=== PATIENT | female | born 1955 | race Caucasian/White ===

== ENCOUNTER 2017-02-02 19:39 | Inpatient (IN) | payer OTHER ==
[~2017-02-02] VITALS: Ht 157.5 cm; Wt 97.1 kg
[2017-02-02 20:52] VITALS: BP 117/66
--- NOTE | 2017-02-02 22:41 | NUR ---
Patient to bed 08.
--- NOTE | 2017-02-02 22:52 | NUR ---
61 Y/O bib by daughter, W/C/O SWELLING TO L 4TH TOE AND FOOT. PT STATES FELT SOMETHING BITTED HER 01/26/17 BUT SWELLING DIDNT STARTED UNTIL 3 DAYS AGO. SMALL AMOUNT OF PUS NOTED, PT DENIES ANY FEVER OR CHILLS. L FOOT APPAERAS SWOLLEN AND RED. ER MD AWARED. Blood Sugar upon admit was: 282
--- NOTE | 2017-02-02 22:54 | NUR ---
Dr. Bañuelos evaluating patient at bedside.
[2017-02-02] MEDS ORDERED: NACL 0.9% 1,000 ML IV ONE (23:01)
[2017-02-02] MEDS ORDERED: PIPERACILLIN/TAZOBACTAM 3.375 GM in DEXTROSE 5% 50 ML IV ONE (23:05)
[2017-02-02] MEDS ORDERED: LIDOCAINE 1% 500 MG/50 ML VIAL INJ ONE (23:05)
--- NOTE | 2017-02-02 23:18 | NUR ---
XRAY at bedside.
[2017-02-02] MEDS ORDERED: PIPERACILLIN/TAZOBACTAM 3.375 GM VIAL IV ONE (23:20)
[2017-02-02 23:34] LABS: ANION GAP 10.8 (8-16); CALCIUM 8.5 mg/dL (8.5-10.1); CARBON DIOXIDE 28.4 mmol/L (21-32); CREATININE 0.8 mg/dL (0.6-1.3); POTASSIUM 4.2 mmol/L (3.5-5.1)
[2017-02-02 23:41] LABS: ALBUMIN 3.3 g/dL (3.4-5.0); TOTAL BILIRUBIN 0.9 mg/dL (0.0-1.0); TOTAL PROTEIN, SERUM 7.7 g/dL (6.4-8.2)
[2017-02-02 23:42] LABS: LACTIC ACID 0.8 mmol/L (0.4-2.0)
[2017-02-02 23:46] LABS: BASOPHILS # (AUTO) 0.1 K/uL (0.00-0.22); BASOPHILS % (AUTO) 1.1 % (0.0-2.0); EOSINOPHILS # (AUTO) 0.1 K/uL (0-0.4); EOSINOPHILS % (AUTO) 1.2 % (0.0-4.0); HEMATOCRIT 35.7 % (36-48); HEMOGLOBIN 11.9 g/dL (12.0-16.0); LYMPHOCYTES # (AUTO) 1.5 K/uL (2.5-16.5); LYMPHOCYTES % (AUTO) 13.2 % (20.5-51.1); MEAN CORPUSCULAR HEMOGLOBIN 28 pg (27-31); MEAN CORPUSCULAR HGB CONC 33 g/dL (33-37); MEAN CORPUSCULAR VOLUME 85 fL (80-94); MONOCYTES # (AUTO) 0.7 K/uL (0.8-1.0); MONOCYTES % (AUTO) 6.6 % (1.7-9.3); NEUTROPHILS # (AUTO) 8.9 K/uL (1.8-7.7); NEUTROPHILS % (AUTO) 77.9 % (42.2-75.2); PLATELET COUNT (AUTO) 336 K/uL (140-450); RED BLOOD CELL COUNT(AUTO) 4.23 MIL/uL (4.20-5.40); RED CELL DISTRIBUTION WIDTH 12.8 % (11.6-13.7); WHITE BLOOD COUNT (AUTO) 11.3 K/uL (4.8-10.8)
[2017-02-02 23:49] LABS: INR 1.1 (0.8-1.2); PROTHROMBIN TIME 10.8 secs (10.8-13.4)
--- NOTE | 2017-02-03 00:46 | NUR ---
PT RESTING IN BED AWATTING FOR WOUND TX. ER MD NOTIFIED OF V/S CHANGED. NO S/S OF DISTRESS NOTED AT THIS MOMENT.
[2017-02-03] MEDS ORDERED: MORPHINE SULFATE 4 MG/ML SYR IVP ONE (01:00)
[2017-02-03] MEDS ORDERED: ONDANSETRON 4 MG/2 ML VIAL IVP ONE (01:00)
[2017-02-03] MEDS ORDERED: ONDANSETRON 4 MG/2 ML VIAL IVP PRN (01:10)
[2017-02-03] MEDS ORDERED: HYDROcodone/APAP 5/325 MG 1 TAB TAB PO PRN (01:10)
[2017-02-03] MEDS ORDERED: ACETAMINOPHEN 325 MG TAB PO PRN (01:10)
[2017-02-03 01:13] LABS: BILIRUBIN,URINE NEGATIVE (NEGATIVE); BLOOD, URINE TRACE-L (NEGATIVE); COLOR,URINE YELLOW (YELLOW); LEUKOCYTE ESTERASE ,URINE TRACE (NEGATIVE); NITRITE, URINE NEGATIVE (NEGATIVE); PH,URINE 5.5 (5.0-9.0); PROTEIN,URINE NEGATIVE (NEGATIVE); UGLUCOSE 3+ (NEGATIVE); UROBILINOGEN,URINE 0.2 EU/dL (0.2 - 1)
[2017-02-03] MEDS ORDERED: DEXTROSE 50% 50 ML SYR IVP PRN (01:15)
[2017-02-03 01:17] LABS: APPEARANCE,URINE SLIGHTLY HAZY (CLEAR)
--- NOTE | 2017-02-03 01:18 | NUR ---
XRAY AT BEDSIDE.
[2017-02-03 01:23] LABS: BACTERIA,URINE 1+ /HPF (None Seen); RBC,URINE 0-5 (RARE) /HPF (0-5); WBC,URINE 20-60 /HPF (0-5)
[2017-02-03] MEDS ORDERED: METF500T2 PO (01:23)
[2017-02-03 01:24] LABS: SQUAMOUS EPITHELIAL CELL,UR 4-10 (MOD) /LPF (0-3 (FEW))
--- NOTE | 2017-02-03 01:41 | NUR ---
Patient will be admitted to care of [facility]. Admited to TELEMETRY. Will go to [id number]. Belongings list completed. Report to CHAD SALMON.
[2017-02-03] MEDS: NACL 0.9% 1,000 ML IV SCH ×3 (01:53→18:16)
--- NOTE | 2017-02-03 02:00 | NUR ---
PT TRANSFERRED TO TELEMETRY. PT STABLE, VSS, NO S/S OF DISTRESS DURING TRASPORT. ACCOMPANIED BY JEFFRY RN, AND STEFF, EMT.
--- NOTE | 2017-02-03 02:05 | NUR ---
[facility]. A 61 y/o. Female, Appropriate. ALERT AWAKE ORIENTED X4. NAURUAN-SPEAKING BUT CAN UNDERSTAND LATVIAN WELL AND SPEAK WELL. INITIAL ASSESSMENT DONE. NO S/S OF RESPIRATORY DISTRESS OR SOB NOTED. NO C/O PAIN OR ANY DISCOMFORT AT THIS TIME. DRESSING IS INTACT ON LEFT FOOT D/T S/P I&D ON THE LEFT BIG TOE D/T CELLULITIS. PLAN OF CARE REVIEWED TO PT AND VERBALIZED UNDERSTANDING. oriented to call light, bed, phone,television, bathroom, smoking policy, visiting hours, procedures, ID bracelet on. Belongings list checked. CALL LIGHT WITHIN REACH. WILL CONTINUE TO MONITOR.
[2017-02-03 02:55] LABS: FREE T4 (FREE THYROXINE) 1.16 ng/dL (0.76-1.46); THYROID STIMULATING HORMONE 1.24 uIU/mL (0.34-3.76)
[2017-02-03 03:26] LABS: AMPHETAMINE, URINE NEG. ng/ml (NEG <=1000); BARBITURATE, URINE NEG. ng/ml (NEG <=200); BENZODIAZEPINE, URINE NEG. ng/mL (NEG <=200); CANNABINOID, URINE NEG. ng/mL (NEG <=50); COCAINE, URINE NEG. ng/mL (NEG <=300); OPIATE, URINE NEG. ng/mL (NEG <=2000); PHENCYCLIDINE SCREEN,URINE NEG. ng/mL (NEG <=25)
[2017-02-03] MEDS ORDERED: CLINDAMYCIN 600 MG/4 ML VIAL ONE ×2 (03:51→12:20)
[2017-02-03 04:00] VITALS: BP 155/79
[2017-02-03] MEDS: CLINDAMYCIN 600 MG in DEXTROSE 5% 50 ML IV SCH ×3 (04:03→20:55)
--- NOTE | 2017-02-03 04:50 | NUR ---
PT IS ASLEEP RIGHT NOW BUT EASILY AROUSABLE. NO S/S OF ANY DISCOMFORT AT THIS TIME. ALL NEEDS ARE ATTENDED. CALL LIGHT WITHIN REACH. WILL CONTINUE TO MONITOR.
--- NOTE | 2017-02-03 05:45 | NUR ---
AM CARE RENDERED. BED LINEN CHANGED. INSTRUCTED PT TO REPOSITION. KEPT CLEAN AND DRY. CALL LIGHT WITHIN REACH. WILL CONTINUE TO MONITOR.
[2017-02-03 06:31] LABS: BASOPHILS % (AUTO) 0.5 % (0.0-2.0); EOSINOPHILS # (AUTO) 0.1 K/uL (0-0.4); HEMATOCRIT 33.2 % (36-48); HEMOGLOBIN 10.9 g/dL (12.0-16.0); LYMPHOCYTES # (AUTO) 1.8 K/uL (2.5-16.5); LYMPHOCYTES % (AUTO) 20.9 % (20.5-51.1); MEAN CORPUSCULAR HEMOGLOBIN 28 pg (27-31); MEAN CORPUSCULAR HGB CONC 33 g/dL (33-37); MEAN CORPUSCULAR VOLUME 84 fL (80-94); MONOCYTES # (AUTO) 0.7 K/uL (0.8-1.0); MONOCYTES % (AUTO) 7.7 % (1.7-9.3); NEUTROPHILS % (AUTO) 69.9 % (42.2-75.2); PLATELET COUNT (AUTO) 324 K/uL (140-450); RED BLOOD CELL COUNT(AUTO) 3.93 MIL/uL (4.20-5.40); RED CELL DISTRIBUTION WIDTH 12.9 % (11.6-13.7); WHITE BLOOD COUNT (AUTO) 8.6 K/uL (4.8-10.8)
[2017-02-03] MEDS: BLOOD GLUCOSE MONITORING 1 DEV DEV FS SCH ×4 (06:31→20:54)
[2017-02-03] MEDS: INSULIN LISPRO SLIDING SCALE 100 UNITS/ML VIAL SUBQ PRN ×4 (06:32→21:00)
--- NOTE | 2017-02-03 07:10 | NUR ---
ENDORSED PT TO RN. PANCHO FOR CONTINUITY OF CARE. PT STABLE AT THIS TIME. Addendum: 02/03/17 at 1927 by Mariama Velarde RN WRONG TIME
--- NOTE | 2017-02-03 07:17 | NUR ---
PT HAS NO S/S OF ANY DISCOMFORT. PLAN OF CARE ENDORSED TO ANN STEWART RN AT BEDSIDE FOR CONTINUITY OF CARE.
--- NOTE | 2017-02-03 07:21 | NUR ---
PATIENT HAS BEEN SCREENED AND CATEGORIZED MODERATE NUTRITION RISK. PATIENT WILL BE SEEN WITHIN 3-5 DAYS OF ADMISSION. 02/05/17-02/07/17 VENU SOLOMON MS, RDN
[2017-02-03 07:23] LABS: ANION GAP 10.6 (8-16); CALCIUM 7.8 mg/dL (8.5-10.1); CARBON DIOXIDE 25.7 mmol/L (21-32); CREATININE 0.8 mg/dL (0.6-1.3); POTASSIUM 3.3 mmol/L (3.5-5.1)
--- NOTE | 2017-02-03 07:24 | NUR ---
RECEIVED REPORT FROM CHAD SALMON. PT IS A/OX4, IV ON LT AC PATENT AND INTACT, INFUSING WELL. DRESSING ON LEFT TOE IS DRY AND INTACT. NO S/S OF RESPIRATORY DISTRESS OR DISCOMFORT NOTED. DISCUSSED PLAN OF CARE WITH PT, PT VERBALIZED UNDERSTANDING. CALL LIGHT WITHIN REACH, WILL CONTINUE TO MONITOR.
[2017-02-03 07:28] LABS: PHOSPHORUS 2.2 mg/dL (2.5-4.9)
[2017-02-03 07:29] LABS: CHOL/HDL RATIO 2.8 (1-4.5)
[2017-02-03 07:38] LABS: MAGNESIUM 1.8 mg/dL (1.8-2.4)
[2017-02-03 08:00] VITALS: BP 127/68
[2017-02-03] MEDS: DOCUSATE SODIUM 100 MG GELCAP PO SCH (08:42)
--- NOTE | 2017-02-03 08:42 | NUR ---
DUE MEDICATIONS GIVEN. PT TOLERATED WELL. NO S/S OF RESPIRATORY DISTRESS OR DISCOMFORT NOTED. CALL LIGHT WITHIN REACH, WILL CONTINUE TO MONITOR.
[2017-02-03] MEDS: SODIUM PHOS / POTASSIUM PHOS 1 PKT PDR PO SCH ×3 (08:43→16:45)
[2017-02-03] MEDS ORDERED: POTASSIUM CHLORIDE 10 MEQ TABER PO SCH (09:00)
--- NOTE | 2017-02-03 11:20 | NUR ---
PT RESTING IN BED, FAMILY IS AT BEDSIDE.
[2017-02-03 12:00] VITALS: BP 145/82
--- NOTE | 2017-02-03 13:26 | NUR ---
PT IS RESTING IN BED, WATCHING TV. NO S/S OF RESPIRATORY DISTRESS OR DISCOMFORT NOTED, CALL LIGHT WITHIN REACH WILL CONTINUE TO MONITOR.
--- NOTE | 2017-02-03 15:45 | NUR ---
PT IS RESTING ON BED TALKING TO FAMILY MEMBER AT BEDSIDE, ALL NEEDS MET AT THIS TIME, CALL LIGHT WITHIN REACH, WILL CONTINUE TO MONITOR.
[2017-02-03 16:00] VITALS: BP 121/75
[2017-02-03] MEDS: LEVOFLOXACIN 250 MG/D5 PREMIX 50 ML IV SCH (16:30)
[2017-02-03] MEDS: metFORMIN 500 MG TAB PO SCH (16:44)
--- NOTE | 2017-02-03 17:45 | NUR ---
DINNER SERVED, PT HAS GOOD APPETITE, NO S/S OF RESPIRATORY DISTRESS OR DISCOMFORT NOTED, ALL NEEDS MET AT THIS TIME, CALL LIGHT WITHIN REACH, WILL CONTINUE TO MONITOR.
--- NOTE | 2017-02-03 19:10 | NUR ---
ENDORSED PT TO CHAD DELEON. FOR CONTINUITY OF CARE. PT STABLE AT THIS TIME.
--- NOTE | 2017-02-03 19:45 | NUR ---
RECEIVED PT IN STABLE CONDITION FROM AM NURSE. AWAKE,ALERT AND ORIENTED X4. FAROESE SPEAKING. ON TELE -SR. NO C/O ANY PAIN AT THIS TIME. RT FOOT WITH DRESSING . NO DRAIN NOTED.FAMILY AT BEDSIDE. IVF INFS=USING WELL ON THE LT AC # 20. CLEAR AND PATENT. PLAN OF CARE DISCUSSED AND VERBALIZED UNDERSTANDING. CALL LIGHT PLACED WITHIN EASY REACH. WILL CONTINUE TO MONITOR.
[2017-02-03 20:00] VITALS: BP 109/59
[2017-02-03] MEDS ORDERED: INSULIN DETEMIR 100 UNITS/ML 10 ML VIAL SUBQ SCH (21:00)
--- NOTE | 2017-02-03 21:00 | NUR ---
BLOOD SUGAR WAS CHECKED RESULT 344. INSULIN COVERAGE GIVEN. HS SNACK PROVIDED. WILL CONTINUE TO MONITOR.
--- NOTE | 2017-02-03 23:00 | NUR ---
SLEEPING WELL AT THIS TIME. NO S/S OF ANY DISCOMFORT NOR PAIN NOTED. WILL CONTINUE TO MONITOR
[2017-02-04] VITALS: BP 127/75
--- NOTE | 2017-02-04 02:00 | NUR ---
SLEEPING . NO S/S OF ANT PAIN NOTED. WILL CONTINUE TO MONITOR.
[2017-02-04] MEDS: NACL 0.9% 1,000 ML IV SCH ×4 (03:56→21:32)
[2017-02-04 04:00] VITALS: BP 141/85
--- NOTE | 2017-02-04 04:05 | NUR ---
GOT UP TO THE BATHROOM. ENCOURAGED TO USE LT FOOT SHOE .
[2017-02-04] MEDS: CLINDAMYCIN 600 MG in DEXTROSE 5% 50 ML IV SCH ×3 (04:46→20:18)
[2017-02-04] MEDS: BLOOD GLUCOSE MONITORING 1 DEV DEV FS SCH ×4 (06:17→21:16)
[2017-02-04] MEDS: INSULIN LISPRO SLIDING SCALE 100 UNITS/ML VIAL SUBQ PRN ×4 (06:18→21:30)
--- NOTE | 2017-02-04 06:18 | NUR ---
BLOOD SUGAR WAS CHECKED THIS AM RESULT 364. INSULIN COVERAGE GIVEN.
[2017-02-04 06:52] LABS: BASOPHILS # (AUTO) 0.2 K/uL (0.00-0.22); EOSINOPHILS # (AUTO) 0.1 K/uL (0-0.4); EOSINOPHILS % (AUTO) 1.5 % (0.0-4.0); HEMATOCRIT 33.2 % (36-48); HEMOGLOBIN 10.9 g/dL (12.0-16.0); LYMPHOCYTES # (AUTO) 2.4 K/uL (2.5-16.5); LYMPHOCYTES % (AUTO) 27.6 % (20.5-51.1); MEAN CORPUSCULAR HEMOGLOBIN 28 pg (27-31); MEAN CORPUSCULAR HGB CONC 33 g/dL (33-37); MEAN CORPUSCULAR VOLUME 86 fL (80-94); MONOCYTES # (AUTO) 0.7 K/uL (0.8-1.0); NEUTROPHILS # (AUTO) 5.2 K/uL (1.8-7.7); NEUTROPHILS % (AUTO) 60.9 % (42.2-75.2); PLATELET COUNT (AUTO) 316 K/uL (140-450); RED BLOOD CELL COUNT(AUTO) 3.87 MIL/uL (4.20-5.40); RED CELL DISTRIBUTION WIDTH 12.6 % (11.6-13.7); WHITE BLOOD COUNT (AUTO) 8.6 K/uL (4.8-10.8)
[2017-02-04 07:01] LABS: ANION GAP 7.7 (8-16); CALCIUM 7.9 mg/dL (8.5-10.1); CARBON DIOXIDE 28.9 mmol/L (21-32); CREATININE 0.8 mg/dL (0.6-1.3); POTASSIUM 4.6 mmol/L (3.5-5.1)
[2017-02-04 07:10] LABS: MAGNESIUM 1.9 mg/dL (1.8-2.4)
--- NOTE | 2017-02-04 07:16 | NUR ---
ASSUMED CONTINUITY OF CARE. NO SIGNS AND SYMPTOMS OF ACUTE DISTRESS NOTED. INITIAL ASSESSMENT DONE. EXPLAINED DIAGNOSIS, PLAN OF CARE, POST-OP CARE, PAIN MANAGEMENT TEACHING, USE OF CALL LIGHT/BED/TV/BATHROOM. VERBALIZED UNDERSTANDING. CALL LIGHT WITHIN REACH.
--- NOTE | 2017-02-04 07:20 | NUR ---
ENDORSED PT IN STABLE CONDITION TO AM NURSE.
[2017-02-04 08:00] VITALS: BP 139/76
--- NOTE | 2017-02-04 08:00 | NUR ---
Patient's Plan of Care was discussed and reviewed with HELMET HAT SWEATBAND PUNCHER: KALEB BUSTILLOS LVN
[2017-02-04] MEDS: DOCUSATE SODIUM 100 MG GELCAP PO SCH (08:33)
[2017-02-04] MEDS: metFORMIN 500 MG TAB PO SCH ×2 (08:33→16:38)
[2017-02-04] MEDS ORDERED: INSULIN DETEMIR 100 UNITS/ML 10 ML VIAL SUBQ SCH ×2 (09:35→21:00)
[2017-02-04 12:00] VITALS: BP 135/72
--- NOTE | 2017-02-04 13:16 | NUR ---
WOUND CARE DONE ON LEFT 5TH TOE. TOLERATED WELL. NO C/O PAIN. KEEP COMFORTABLE ON BED.
[2017-02-04 16:00] VITALS: BP 121/74
[2017-02-04] MEDS: LEVOFLOXACIN 250 MG/D5 PREMIX 50 ML IV SCH (17:01)
--- NOTE | 2017-02-04 19:12 | NUR ---
REPORT GIVEN TO PANCHO WORKMAN -CHAD. IVF INFUSING WELL. IN STABLE CONDITION.
--- NOTE | 2017-02-04 19:30 | NUR ---
RECEIVED PT IN STABLE CONDITION FROM AM NURSE. AWAKE,ALERT AND ORIENTED X4. YAKUT SPEAKING. ON TELE MONITOR. WITH NO C/O ANY PAIN NOTED. WITH LT FOOT DRESSING , HAS SHOE ON . IVF INFUSING WELL ON THE LT FA#22. PLAN OF CARE DISCUSSED AND VERBALIZED UNDERSTANDING . CALL LIGHT PLACED WITHIN EASY REACH . BED ON LOW POSITION. WILL CONTINUE TO MONITOR.
[2017-02-04 19:45] VITALS: BP 134/77
[2017-02-04] MEDS: SIMVASTATIN 10 MG TAB PO SCH (20:18)
--- NOTE | 2017-02-04 21:30 | NUR ---
BLOOD SUGAR WAS CHECKED RESULT 329, INSULIN COVERAGE GIVEN . HS SNACK PROVIDED.
[2017-02-04] MEDS: INSULIN NPH HUM/REG INSULIN HM 100 UNIT/ML 10 ML VIAL SQ SCH (21:40)
--- NOTE | 2017-02-04 23:00 | NUR ---
ASLEEP. NO S/S OF AMI DISCOMFORT NOTED.
[2017-02-05 00:15] VITALS: BP 144/82
--- NOTE | 2017-02-05 03:00 | NUR ---
ASLEEP. NO S/S OF ANY DISCOMFORT NOR PAIN NOTED.
[2017-02-05 03:45] VITALS: BP 140/81
[2017-02-05] MEDS: CLINDAMYCIN 600 MG in DEXTROSE 5% 50 ML IV SCH ×3 (05:03→21:35)
[2017-02-05] MEDS: BLOOD GLUCOSE MONITORING 1 DEV DEV FS SCH ×4 (06:10→21:36)
[2017-02-05 06:23] LABS: BASOPHILS % (AUTO) 0.5 % (0.0-2.0); EOSINOPHILS # (AUTO) 0.1 K/uL (0-0.4); EOSINOPHILS % (AUTO) 1.9 % (0.0-4.0); HEMOGLOBIN 11.3 g/dL (12.0-16.0); LYMPHOCYTES # (AUTO) 2.4 K/uL (2.5-16.5); LYMPHOCYTES % (AUTO) 33.5 % (20.5-51.1); MEAN CORPUSCULAR HEMOGLOBIN 28 pg (27-31); MEAN CORPUSCULAR HGB CONC 33 g/dL (33-37); MEAN CORPUSCULAR VOLUME 85 fL (80-94); MONOCYTES # (AUTO) 0.5 K/uL (0.8-1.0); NEUTROPHILS # (AUTO) 4.3 K/uL (1.8-7.7); NEUTROPHILS % (AUTO) 57.1 % (42.2-75.2); PLATELET COUNT (AUTO) 342 K/uL (140-450); RED BLOOD CELL COUNT(AUTO) 4.01 MIL/uL (4.20-5.40); WHITE BLOOD COUNT (AUTO) 7.3 K/uL (4.8-10.8)
[2017-02-05] MEDS: INSULIN LISPRO SLIDING SCALE 100 UNITS/ML VIAL SUBQ PRN ×4 (06:28→21:40)
--- NOTE | 2017-02-05 06:28 | NUR ---
BLOOD SUGAR THIS AM 249. INSULIN COVERAGE GIVEN.
[2017-02-05 06:38] LABS: ANION GAP 10.6 (8-16); CALCIUM 8.4 mg/dL (8.5-10.1); CARBON DIOXIDE 28.3 mmol/L (21-32); CREATININE 0.7 mg/dL (0.6-1.3); POTASSIUM 3.9 mmol/L (3.5-5.1)
[2017-02-05 06:46] LABS: MAGNESIUM 1.8 mg/dL (1.8-2.4); PHOSPHORUS 4.1 mg/dL (2.5-4.9)
[2017-02-05] MEDS: NACL 0.9% 1,000 ML IV SCH (07:18)
--- NOTE | 2017-02-05 07:20 | NUR ---
ENDORSED PT IN STABLE CONDITION TO AM NURSE.
--- NOTE | 2017-02-05 07:22 | NUR ---
RECEIVED REPORT FROM NIGHT RN. PT RESTING IN BED. AAOX4. NO S/S OF ACUTE DISTRESS. PT DENIES PAIN. IV SITE PATENT AND INTACT. DRESSING TO LEFT FOOT DRY AND INTACT. CALL LIGHT WITHIN REACH. SAFETY MEASURES ENSURED. WILL CONTINUE TO MONITOR.
[2017-02-05 07:52] VITALS: BP 144/64
[2017-02-05] MEDS: DOCUSATE SODIUM 100 MG GELCAP PO SCH (08:43)
[2017-02-05] MEDS: metFORMIN 500 MG TAB PO SCH ×2 (08:44→16:49)
[2017-02-05] MEDS: LEVOFLOXACIN 750 MG/D5W PREMIX 150 ML IV SCH (08:44)
[2017-02-05] MEDS: ECOTRIN 81 MG TABEC PO SCH (08:44)
[2017-02-05] MEDS: INSULIN NPH HUM/REG INSULIN HM 100 UNIT/ML 10 ML VIAL SQ SCH ×2 (08:46→21:41)
--- NOTE | 2017-02-05 10:07 | NUR ---
PT RESTING IN BED. NO S/S OF ACUTE DISTRESS. PT DENIES PAIN. CALL LIGHT WITHIN REACH. SAFETY MEASURES ENSURED. WILL CONTINUE TO MONITOR.
--- NOTE | 2017-02-05 10:30 | NUR ---
WOUND CARE NOTES: WOUND CARE INSTRUCTIONS GIVEN, PATIENT IS ABLE TO VERBALIZE UNDERSTANDING. Addendum: 02/05/17 at 1637 by Joi Rosa RN WRONG ENTRY.
[2017-02-05 12:00] VITALS: BP 141/84
--- NOTE | 2017-02-05 12:40 | NUR ---
PT RESTING IN BED. NO S/S OF ACUTE DISTRESS.PT DENIES PAIN. CALL LIGHT WITHIN REACH. SAFETY MEASURES ENSURED. WILL CONTINUE TO MONITOR.
--- NOTE | 2017-02-05 15:32 | NUR ---
PT RESTING IN BED. NO S/S OF ACUTE DISTRESS. PT DENIES PAIN. CALL LIGHT WITHIN REACH. WILL CONTINUE TO MONITOR.
[2017-02-05 16:00] VITALS: BP 150/83
--- NOTE | 2017-02-05 19:18 | NUR ---
ENDORSED PLAN OF CARE TO NIGHT RN. PT REMAINS IN STABLE CONDITION.
[2017-02-05 20:05] VITALS: BP 134/71
--- NOTE | 2017-02-05 20:05 | NUR ---
SEEN PT AWAKE, ALERT AND ORIENTED APPEARS COMFORTABLE IN BED. FAMILY AT BEDSIDE. INITIAL ASSESSMENT DONE. PT HAS DRESSING ON LEFT FOOT WRAPPED W/ JOSE WRAP W/ POSTOP BOOT ON. PT DENIES ANY DISCOMFORT ON LEFT FOOT. IVF INFUSING WELL. PT DENIES ANY NEEDS AT THIS TIME. SAFETY REINFORCED.
--- NOTE | 2017-02-05 21:35 | NUR ---
BLOOD SUGAR CHECKED:203. WILL COVER WITH INSULIN PER COVERAGE. DUE MEDS GIVEN ORDERED W/ TEACHINGS. PT PROVIDED A/ SNACKS. PT DENIES ANY NEEDS RIGHT NOW. WILL CONTINUE TO MONITOR. CALL LIGHT W/IN REACH.
[2017-02-05] MEDS: SIMVASTATIN 10 MG TAB PO SCH (21:36)
--- NOTE | 2017-02-05 23:50 | NUR ---
SEEN PT AWAKE, APPEARS COMFORTABLE. VITAL SIGNS CHECKED. PT DENIES ANY PAIN OR DISCOMFORT. CALL LIGHT W/IN REACH.
[2017-02-06] VITALS: BP 147/80
[2017-02-06 04:00] VITALS: BP 125/74
[2017-02-06] MEDS: CLINDAMYCIN 600 MG in DEXTROSE 5% 50 ML IV SCH ×2 (04:50→12:14)
[2017-02-06] MEDS: NACL 0.9% 1,000 ML IV SCH ×2 (04:50→08:18)
--- NOTE | 2017-02-06 04:50 | NUR ---
SEEN PT SLEEPING SOUNDLY. VITAL SIGNS CHECKED. PT DENIES ANY DISCOMFORT. DRESSING ON LEFT FOOT DRY AND INTACT ELEVATED OVER PILLOW. CALL LIGHT W/IN REACH.
[2017-02-06 06:15] LABS: BASOPHILS # (AUTO) 0.1 K/uL (0.00-0.22); EOSINOPHILS # (AUTO) 0.2 K/uL (0-0.4); EOSINOPHILS % (AUTO) 2.1 % (0.0-4.0); HEMATOCRIT 33.1 % (36-48); LYMPHOCYTES % (AUTO) 35.6 % (20.5-51.1); MEAN CORPUSCULAR HEMOGLOBIN 28 pg (27-31); MEAN CORPUSCULAR HGB CONC 33 g/dL (33-37); MEAN CORPUSCULAR VOLUME 85 fL (80-94); MONOCYTES # (AUTO) 0.7 K/uL (0.8-1.0); NEUTROPHILS # (AUTO) 4.4 K/uL (1.8-7.7); NEUTROPHILS % (AUTO) 53.3 % (42.2-75.2); PLATELET COUNT (AUTO) 383 K/uL (140-450); RED BLOOD CELL COUNT(AUTO) 3.91 MIL/uL (4.20-5.40); RED CELL DISTRIBUTION WIDTH 12.8 % (11.6-13.7); WHITE BLOOD COUNT (AUTO) 8.4 K/uL (4.8-10.8)
[2017-02-06 06:21] LABS: ANION GAP 10.6 (8-16); CALCIUM 8.6 mg/dL (8.5-10.1); CARBON DIOXIDE 28.1 mmol/L (21-32); CREATININE 0.8 mg/dL (0.6-1.3); POTASSIUM 3.7 mmol/L (3.5-5.1)
[2017-02-06] MEDS: BLOOD GLUCOSE MONITORING 1 DEV DEV FS SCH ×2 (06:27→11:51)
[2017-02-06 06:28] LABS: MAGNESIUM 1.6 mg/dL (1.8-2.4); PHOSPHORUS 5.8 mg/dL (2.5-4.9)
--- NOTE | 2017-02-06 06:28 | NUR ---
BLOOD SUGAR CHECKED:87. WILL GIVE ORANGE JUICE. PT DENIES ANY OTHER NEEDS.
--- NOTE | 2017-02-06 07:00 | NUR ---
REPORT GIVEN TO DAYSHIFT NURSE.
--- NOTE | 2017-02-06 07:14 | NUR ---
ASSUMED CONTINUITY OF CARE. NO SIGNS AND SYMPTOMS OF ACUTE DISTRESS NOTED. INITIAL ASSESSMENT DONE. EXPLAINED DIAGNOSIS, PLAN OF CARE, INCISION CARE, PAIN MANAGEMENT TEACHING, USE OF CALL LIGHT/BED/TV/BATHROOM. VERBALIZED UNDERSTANDING. CALL LIGHT WITHIN REACH.
[2017-02-06 08:00] VITALS: BP 139/73
--- NOTE | 2017-02-06 08:00 | NUR ---
Patient's Plan of Care was discussed and reviewed with ENGINEERING JOB TITLES: KALEB Evans
--- NOTE | 2017-02-06 08:07 | NUR ---
SPOKE WITH LA FROM [facility] ON 02/05/17 SHE SAID TO FAX REVIEW TO [facility] AT [phone] PHONE [phone] FAXED INITIAL REVIEW. Addendum: 02/06/17 at 0810 by Jammie Schmitt CM FAX [facility] [phone]
[2017-02-06] MEDS: metFORMIN 500 MG TAB PO SCH (08:33)
[2017-02-06] MEDS: LEVOFLOXACIN 750 MG/D5W PREMIX 150 ML IV SCH (09:12)
[2017-02-06] MEDS: DOCUSATE SODIUM 100 MG GELCAP PO SCH (09:27)
[2017-02-06] MEDS: ECOTRIN 81 MG TABEC PO SCH (09:27)
[2017-02-06] MEDS: INSULIN NPH HUM/REG INSULIN HM 100 UNIT/ML 10 ML VIAL SQ SCH (09:29)
--- NOTE | 2017-02-06 10:46 | NUR ---
INFORMED DR. MANZANO OF PT. MAG 1.6. WILL CHECK ORDER LATER.
--- NOTE | 2017-02-06 11:27 | NUR ---
WENT TO BATHROOM WITHOUT ASSISTANCE. TOLERATED WELL. NO C/O PAIN.
[2017-02-06] MEDS: INSULIN LISPRO SLIDING SCALE 100 UNITS/ML VIAL SUBQ PRN (11:51)
[2017-02-06 12:00] VITALS: BP 143/83
[2017-02-06] MEDS ORDERED: MAGNESIUM OXIDE 400 MG TAB PO SCH (12:00)
[2017-02-06] MEDS ORDERED: LEVO750T2 PO (12:40)
[2017-02-06] MEDS ORDERED: ACET-9525 PO (12:42)
[2017-02-06] MEDS ORDERED: DOCU-67 PO ×2 (12:42→12:54)
[2017-02-06] MEDS ORDERED: INSU10SU2 SQ ×2 (12:43)
[2017-02-06] MEDS ORDERED: ASCO1CAP75 PO (12:44)
[2017-02-06] MEDS ORDERED: METF500T4 PO (12:45)
[2017-02-06] MEDS ORDERED: ASPI81TA28 PO (12:54)
[2017-02-06] MEDS ORDERED: ATOR10TA PO (12:55)
--- NOTE | 2017-02-06 14:30 | NUR ---
EXPLAINED TO PT. AND PT. DEBORAH CAMERON ABOUT MD D/C ORDER, D/C INSTRUCTIONS AND TEACHING, MD FOLLOW-UP, MD D/C PRESCRIPTION LIST EDUCATION, DIET, DM EDUCATION, INCISION CARE, PAIN MANAGEMENT TEACHING, DISEASE MANAGEMENT. PT. AND PT. DEBORAH CAMERON VERBALIZED UNDERSTANDING.
--- NOTE | 2017-02-06 15:25 | NUR ---
D/C HOME VIA WHEELCHAIR ACCOMPANIED BY PTSaúl CAMERON. AWAKE, ALERT, AND ORIENTED X4. SPEECH CLEAR. NO C/O PAIN. NO SOB, NOTED. IN STABLE CONDITION. INFORMED CHARGE NURSE HERMILO GÓMEZ.
== END 2017-02-06 15:25 | disposition home or self-care (01) | DRG 320 ==
LOC: MED 19:39 → MTU 02-03 01:10
PROVIDERS: ADMIT Student in an Organized Health Care Education/Training Program; ATTEND Student in an Organized Health Care Education/Training Program
PROC: 0QBR0ZZ Excision of Left Toe Phalanx, Open Approach (ICD-10-PCS; principal; 2017-02-03)
PROC: 0H9NXZX Drainage of Left Foot Skin, External Approach, Diagnostic (ICD-10-PCS; 2017-02-03)
DX: E11.69 Type 2 diabetes mellitus with other specified complication (principal); M86.8X7 Other osteomyelitis, ankle and foot; N17.0 Acute kidney failure with tubular necrosis; E44.0 Moderate protein-calorie malnutrition; E11.621 Type 2 diabetes mellitus with foot ulcer; E11.40 Type 2 diabetes mellitus with diabetic neuropathy, unspecified; E11.51 Type 2 diabetes mellitus with diabetic peripheral angiopathy without gangrene; D68.69 Other thrombophilia; E11.65 Type 2 diabetes mellitus with hyperglycemia; N39.0 Urinary tract infection, site not specified; L03.032 Cellulitis of left toe; E83.39 Other disorders of phosphorus metabolism; E83.51 Hypocalcemia; L97.529 Non-pressure chronic ulcer of other part of left foot with unspecified severity; L02.612 Cutaneous abscess of left foot; I10 Essential (primary) hypertension; E66.9 Obesity, unspecified; E83.42 Hypomagnesemia; Z68.39 Body mass index [BMI] 39.0-39.9, adult; Z90.49 Acquired absence of other specified parts of digestive tract; Z79.82 Long term (current) use of aspirin; Z79.899 Other long term (current) drug therapy; Z79.4 Long term (current) use of insulin; Z79.84 Long term (current) use of oral hypoglycemic drugs; Z87.442 Personal history of urinary calculi
CPT/HCPCS: 36415; 71010; 73660; 80048; 80053; 80305; 81001; 82948; 83036; 83605; 83690; 83735; 83880; 84100; 84439; 84443; 85025; 85610; 87040; 87070; 87075; 87081; 87086; 87205; 93005; 93925; 93970; 96365; 96375; 99285; J1644; J1815; J1956; J2001; J2270; J2405; J2543; J3490; J7030; J7060; Q0092

== ENCOUNTER 2018-07-08 16:01 | Emergency (ER) | payer OTHER ==
[~2018-07-08] VITALS: Ht 162.6 cm; Wt 93.4 kg
[~2018-07-08 16:01] MED LIST: ACET-9525 PO; ASCO1CAP75 PO; ASPI-1173 PO; ATOR10TA PO; DOCU-299 PO; INSU10SU2 SQ; LEVO750T2 PO; METF500T2 PO
[2018-07-08 16:09] VITALS: BP 112/54
--- NOTE | 2018-07-08 16:13 | NUR ---
pt ambulated to rm 3 with steady gait. gave report to Edwin BONILLA.
--- NOTE | 2018-07-08 16:14 | NUR ---
62/F bib SON with c/o hyperglycemia and nausea since today. hx--diabetes, hyperlipidemia, hypertension. SMALL OPEN WOUND RIGHT 2ND TOE. DENIES N/V/D; SKIN IS PINK/WARM/DRY; AAOX4 WITH EVEN AND STEADY GAIT; LUNGS CLEAR BL; HR EVEN AND REGULAR; PT DENIES ANY FEVER, CP, SOB, OR COUGH AT THIS TIME; PATIENT STATES PAIN OF 0/10 AT THIS TIME. PATIENT POSITIONED FOR COMFORT; HOB ELEVATED; BEDRAILS UP X2; BED DOWN. ER MD MADE AWARE OF PT STATUS.
--- NOTE | 2018-07-08 16:31 | NUR ---
Patient being evaluated by DR GALVAN at bedside.
[2018-07-08] MEDS ORDERED: NACL 0.9% 1,000 ML IV SCH (16:41)
[2018-07-08 17:15] LABS: APPEARANCE,URINE CLEAR (CLEAR); BASOPHILS # (AUTO) 0.1 K/uL (0.00-0.22); BASOPHILS % (AUTO) 0.6 % (0.0-2.0); BILIRUBIN,URINE NEGATIVE (NEGATIVE); BLOOD, URINE NEGATIVE (NEGATIVE); COLOR,URINE YELLOW (YELLOW); EOSINOPHILS # (AUTO) 0.1 K/uL (0-0.4); EOSINOPHILS % (AUTO) 0.7 % (0.0-4.0); HEMATOCRIT 36.1 % (36-48); LEUKOCYTE ESTERASE ,URINE 1+ (NEGATIVE); LYMPHOCYTES # (AUTO) 2.4 K/uL (2.5-16.5); LYMPHOCYTES % (AUTO) 27.6 % (20.5-51.1); MEAN CORPUSCULAR HEMOGLOBIN 29 pg (27-31); MEAN CORPUSCULAR HGB CONC 33 g/dL (33-37); MEAN CORPUSCULAR VOLUME 86.6 fL (80-94); MONOCYTES # (AUTO) 0.4 K/uL (0.8-1.0); MONOCYTES % (AUTO) 4.9 % (1.7-9.3); NEUTROPHILS # (AUTO) 5.8 K/uL (1.8-7.7); NEUTROPHILS % (AUTO) 66.2 % (42.2-75.2); NITRITE, URINE POSITIVE (NEGATIVE); PH,URINE 5.5 (5.0-9.0); PLATELET COUNT (AUTO) 323 K/uL (140-450); RED BLOOD CELL COUNT(AUTO) 4.17 MIL/uL (4.20-5.40); RED CELL DISTRIBUTION WIDTH 13.8 % (11.6-13.7); UGLUCOSE 3+ (NEGATIVE); WHITE BLOOD COUNT (AUTO) 8.8 K/uL (4.8-10.8)
[2018-07-08 17:22] LABS: ANION GAP 11.5 (8-16); CARBON DIOXIDE 26.7 mmol/L (21-32); CREATININE 1.3 mg/dL (0.6-1.3); POTASSIUM 4.2 mmol/L (3.5-5.1)
[2018-07-08 17:28] LABS: TOTAL BILIRUBIN 0.4 mg/dL (0.0-1.0)
[2018-07-08 17:29] LABS: ALBUMIN 3.4 g/dL (3.4-5.0)
--- NOTE | 2018-07-08 17:48 | NUR ---
Patient being reevaluated by DR GALVAN at bedside.
[2018-07-08] MEDS ORDERED: NACL 0.9% 1,000 ML IV ONE (17:50)
--- NOTE | 2018-07-08 17:51 | NUR ---
Patient appears to be resting comfortably in bed. Vital Signs within normal limits. Respirations even and unlabored.WILL CONTINUE TO MONITOR.
[2018-07-08 18:04] LABS: RBC,URINE 3-10 (FEW) /HPF (0-5); WBC,URINE 20-60 /HPF (0-5)
--- NOTE | 2018-07-08 18:15 | NUR ---
Calli ferrera in ED - 07/08/18 at 1816 by [facility] Patient discharged with v/s stable. Written and verbal after care instructions given and explained. Patient verbalized understanding. Ambulatory with steady gait. All questions addressed prior to discharge. Advised to follow up with PMD.
[2018-07-08 18:50] VITALS: BP 152/82
--- NOTE | 2018-07-08 18:50 | NUR ---
Patient discharged with BP 152/82, DENIES MICHELLE OR DIZINESS AT THIS TIME. Written and verbal after care instructions given and explained. Patient alert, oriented and verbalized understanding of instructions. Ambulatory with steady gait. All questions addressed prior to discharge. ID band removed. Patient advised to follow up with PMD. Rx of MACROBID given. Patient educated on indication of medication including possible reaction and side effects. Opportunity to ask questions provided and answered.
--- NOTE | 2018-07-10 14:21 | NUR ---
PATIENT URINE CULTURE RETURNED POSITIVE FOR E COLI WITH ESBL. PATIENT SENT HOME WITH RX FOR MACROBID, C AND S REPORT SHOWS SUSCEPTABLITIY, NO FURTHER CARE NEEDED.
== END 2018-07-08 18:50 | disposition home or self-care (01) ==
LOC: MED 16:01
DX: E11.65 Type 2 diabetes mellitus with hyperglycemia (principal); N39.0 Urinary tract infection, site not specified; I10 Essential (primary) hypertension; Z79.899 Other long term (current) drug therapy
CPT/HCPCS: 36415; 80053; 81001; 82948; 84484; 85025; 87086; 87186; 93005; 96360; 99285; J7030

== ENCOUNTER 2019-12-05 22:16 | Emergency (ER) | payer OTHER ==
[~2019-12-05] VITALS: Ht 154.9 cm; Wt 99.8 kg
[2019-12-05 22:39] VITALS: BP 185/84
--- NOTE | 2019-12-05 22:50 | NUR ---
AMBULATES TO BED 07 WITH UPRIGHT STEADY GAIT. SON ACCOMPANYING. URINE SAMPLE COLLECTED.
--- NOTE | 2019-12-05 22:55 | NUR ---
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 SOMETIMES WITH RADIATION TO RUQ. PAIN INTERMITTENT/UNPROVOKED AND DESCRIBED "POKING". DENIES FEVER, CHILLS, HEMATURIA, DYSURIA. STATES URINARY FREQUENCY AND URGENCY. TOOK MOTRIN AT HOME WITH NO RELIEF. PMH-- DM TYPE 2 RX-- INSULIN DEPENDENT
[2019-12-05] MEDS ORDERED: NACL 0.9% 1,000 ML IV SCH (23:07)
[2019-12-05] MEDS ORDERED: MORPHINE SULFATE 4 MG/ML SYR IVP ONE (23:10)
[2019-12-05] MEDS ORDERED: ONDANSETRON 4 MG/2 ML VIAL IVP ONE (23:10)
[2019-12-05 23:32] LABS: BASOPHILS % (AUTO) 0.6 % (0.0-2.0); EOSINOPHILS # (AUTO) 0.2 K/uL (0-0.4); EOSINOPHILS % (AUTO) 2.9 % (0.0-4.0); HEMATOCRIT 39.7 % (36-48); HEMOGLOBIN 12.9 g/dL (12.0-16.0); LYMPHOCYTES # (AUTO) 1.6 K/uL (2.5-16.5); LYMPHOCYTES % (AUTO) 21.1 % (20.5-51.1); MEAN CORPUSCULAR HEMOGLOBIN 28 pg (27-31); MEAN CORPUSCULAR HGB CONC 33 g/dL (33-37); MEAN CORPUSCULAR VOLUME 86.3 fL (80-94); MONOCYTES # (AUTO) 0.4 K/uL (0.8-1.0); MONOCYTES % (AUTO) 5.4 % (1.7-9.3); NEUTROPHILS # (AUTO) 5.2 K/uL (1.8-7.7); PLATELET COUNT (AUTO) 371 K/uL (140-450); WHITE BLOOD COUNT (AUTO) 7.4 K/uL (4.8-10.8)
--- NOTE | 2019-12-05 23:48 | NUR ---
TO CT SCAN VIA W/C
[2019-12-05 23:56] LABS: BILIRUBIN,URINE NEGATIVE (NEGATIVE); BLOOD, URINE TRACE-I (NEGATIVE); COLOR,URINE YELLOW (YELLOW); LEUKOCYTE ESTERASE ,URINE NEGATIVE (NEGATIVE); NITRITE, URINE POSITIVE (NEGATIVE); PH,URINE 5.5 (5.0-9.0); UGLUCOSE 3+ (NEGATIVE)
[2019-12-06 00:07] LABS: APPEARANCE,URINE SLIGHTLY HAZY (CLEAR)
[2019-12-06 00:09] LABS: ANION GAP 15.1 (8-16); CARBON DIOXIDE 25.4 mmol/L (21-32); POTASSIUM 4.5 mmol/L (3.5-5.1)
[2019-12-06 00:10] LABS: RBC,URINE 0-5 /HPF (0-5)
[2019-12-06 00:14] LABS: ALBUMIN 3.7 g/dL (3.4-5.0); TOTAL BILIRUBIN 0.4 mg/dL (0.0-1.0)
[2019-12-06] MEDS ORDERED: cefTRIAXone 1,000 MG VIAL ONE (00:27)
--- NOTE | 2019-12-06 01:25 | NUR ---
REPORT RECEIVED FROM CHAD GOMEZ. ASSUMED CARE AT THIS TIME.
--- NOTE | 2019-12-06 02:15 | NUR ---
PT LAYING SUPINE IN BED. EYES SEEN CLOSED. VISIBLE CHEST RISE AND FALL NOTED. AROUSABLE TO NAME AND LIGHT TOUCH. PT REPORTS DECREASED PAIN. FAMILY AT BEDSIDE. WILL CONTINUE TO MONITOR.
--- NOTE | 2019-12-06 04:03 | NUR ---
PT SEEN WITH EYES CLOSES. VISIBLE CHEST RISE AND FALL NOTED. WILL CONTINUE TO MONITOR.
[2019-12-06 04:04] VITALS: BP 140/70
--- NOTE | 2019-12-06 04:40 | NUR ---
Patient discharged with v/s stable. Written and verbal after care instructions given and explained. Patient alert, oriented and verbalized understanding of instructions. Ambulatory with steady gait. All questions addressed prior to discharge. ID band removed. Patient advised to follow up with PMD. Rx of KEFLEX, MOTRIN,AND ZOFRAN given. Patient educated on indication of medication including possible reaction and side effects. Opportunity to ask questions provided and answered.
== END 2019-12-06 04:40 | disposition home or self-care (01) ==
LOC: MED 22:16
DX: N12 Tubulo-interstitial nephritis, not specified as acute or chronic (principal); E11.9 Type 2 diabetes mellitus without complications; I10 Essential (primary) hypertension; Z90.49 Acquired absence of other specified parts of digestive tract; Z89.429 Acquired absence of other toe(s), unspecified side; Z79.4 Long term (current) use of insulin; Z79.82 Long term (current) use of aspirin; Z79.899 Other long term (current) drug therapy
CPT/HCPCS: 36415; 74176; 80053; 81001; 82150; 83690; 85025; 87086; 87186; 96365; 96375; 99284; J0696; J2270; J2405; J7030